=== PATIENT | female | born 1965 | race Caucasian/White ===

== ENCOUNTER → 2016-10-14 | Outpatient (CLI) | payer BC ==
--- NOTE | 2016-10-18 09:32 | MM ---
Reason for exam: screening (asymptomatic). Last mammogram was performed 1 year and 7 months ago. History: Benign excisional biopsy of the right breast. Physical Findings: A clinical breast exam by your physician is recommended on an annual basis and results should be correlated with mammographic findings. MG Screening Mammo w CAD Bilateral CC and MLO view(s) were taken. Prior study comparison: March 14, 2015, bilateral MG screening mammo w CAD. June 29, 2012, bilateral digital screening mammo w/CAD. The breast tissue is heterogeneously dense. This may lower the sensitivity of mammography. There is chronic nodularity in the right breast. No significant changes when compared with prior studies. ASSESSMENT: Benign, BI-RAD 2 RECOMMENDATION: Routine screening mammogram of both breasts in 1 year.
== END ==
LOC: RADMAMWWP 07:00
PROVIDERS: ATTEND Obstetrics & Gynecology
DX: Z12.31 Encounter for screening mammogram for malignant neoplasm of breast (principal)

== ENCOUNTER → 2018-02-28 | Outpatient (CLI) | payer BC ==
--- NOTE | 2018-03-01 11:24 | MM ---
Reason for exam: screening (asymptomatic). Last mammogram was performed 1 year and 4 months ago. History: Patient is postmenopausal. Benign excisional biopsy of the right breast. Physical Findings: A clinical breast exam by your physician is recommended on an annual basis and results should be correlated with mammographic findings. MG Screening Mammo w CAD Bilateral CC and MLO view(s) were taken. Prior study comparison: October 14, 2016, bilateral MG screening mammo w CAD. March 14, 2015, bilateral MG screening mammo w CAD. The breast tissue is heterogeneously dense. This may lower the sensitivity of mammography. No significant changes when compared with prior studies. ASSESSMENT: Negative, BI-RAD 1 RECOMMENDATION: Routine screening mammogram of both breasts in 1 year.
== END | disposition home or self-care (01) ==
LOC: RADMAMWWP 07:26
PROVIDERS: ATTEND Obstetrics & Gynecology
DX: Z12.31 Encounter for screening mammogram for malignant neoplasm of breast (principal)
CPT/HCPCS: 77067

== ENCOUNTER → 2020-02-28 | Outpatient (CLI) | payer BC | END | disposition home or self-care (01) | LOC: LABWHC1 14:24 | PROVIDERS: ATTEND Family Medicine | DX: J22 Unspecified acute lower respiratory infection (principal); Z20.828 Contact with and (suspected) exposure to other viral communicable diseases | CPT/HCPCS: U0003; C9803 ==

== ENCOUNTER → 2020-03-18 | Outpatient (CLI) | payer BC ==
--- NOTE | 2020-03-18 13:45 | MM ---
Reason for exam: screening (asymptomatic). Last mammogram was performed 2 years and 1 month ago. History: Patient is postmenopausal. Benign excisional biopsy of the right breast. Physical Findings: A clinical breast exam by your physician is recommended on an annual basis and results should be correlated with mammographic findings. MG 3D Screening Mammo W/Cad Bilateral CC and MLO view(s) were taken. Prior study comparison: February 28, 2018, bilateral MG screening mammo w CAD. October 14, 2016, bilateral MG screening mammo w CAD. The breast tissue is heterogeneously dense. This may lower the sensitivity of mammography. Asymmetric breast tissue right breast, stable. There is no discrete abnormality. ASSESSMENT: Negative, BI-RAD 1 RECOMMENDATION: Routine screening mammogram of both breasts in 1 year.
== END | disposition home or self-care (01) ==
LOC: RADMAMWWP 07:14
PROVIDERS: ATTEND Family Medicine
DX: Z12.31 Encounter for screening mammogram for malignant neoplasm of breast (principal)
CPT/HCPCS: 77063; 77067

== ENCOUNTER → 2021-07-30 | Outpatient (CLI) | payer BC ==
--- NOTE | 2021-07-31 14:28 | MM ---
Reason for exam: screening (asymptomatic). Last mammogram was performed 1 year and 4 months ago. History: Patient is postmenopausal. Benign excisional biopsy of the right breast. Physical Findings: A clinical breast exam by your physician is recommended on an annual basis and results should be correlated with mammographic findings. MG 3D Screening Mammo W/Cad Bilateral CC and MLO view(s) were taken. Prior study comparison: March 18, 2020, bilateral MG 3d screening mammo w/cad. February 28, 2018, bilateral MG screening mammo w CAD. There are scattered fibroglandular densities. Finding: There is a typically benign 3 mm equal density (isodense), circumscribed oval mass located 7 cm from the nipple in the right breast. New finding since March 18, 2020 and February 28, 2018. ASSESSMENT: Incomplete: need additional imaging evaluation, BI-RAD 0 RECOMMENDATION: Ultrasound of the right breast. [facility] will attempt to contact patient to return for ultrasound.
== END | disposition home or self-care (01) ==
LOC: RADMAMWWP 07:37
PROVIDERS: ATTEND Internal Medicine
DX: Z12.31 Encounter for screening mammogram for malignant neoplasm of breast (principal); Z78.0 Asymptomatic menopausal state
CPT/HCPCS: 77063; 77067

== ENCOUNTER → 2021-08-07 | Outpatient (CLI) | payer BC ==
--- NOTE | 2021-08-07 10:37 | USB ---
Reason for exam: additional evaluation requested from abnormal screening. History: Patient is postmenopausal. Benign excisional biopsy of the right breast. Physical Findings: A clinical breast exam by your physician is recommended on an annual basis and results should be correlated with mammographic findings. US Breast Workup Limited RT Right limited breast ultrasound including focal area of concern, retroareolar and axilla demonstrates a 0.5 x 0.4 x 0.2cm oval, cystic lesion at 6 o'clock, 2.6cm from nipple. Scanned 11-6 o'clock. These results were verbally communicated with the patient and result sheet given to the patient on 08/07/21. ASSESSMENT: Probably benign, BI-RAD 3 RECOMMENDATION: Ultrasound of the right breast in 6 months.
== END | disposition home or self-care (01) ==
LOC: RADUSWWP 10:08
PROVIDERS: ATTEND Internal Medicine
DX: R92.8 Other abnormal and inconclusive findings on diagnostic imaging of breast (principal); Z78.0 Asymptomatic menopausal state

== ENCOUNTER → 2021-09-24 | Outpatient (CLI) | payer BC ==
[2021-09-24 14:31] VITALS: BP 123/82; PULSE 68; RESP 18; TEMP 98.9
--- NOTE | 2021-09-24 14:57 | P.GSHP ---
History of Present Illness H&P Date: 09/24/21 Chief Complaint: abnormal right breast ultrasound Rosario is a 56 year old white female seen in consultation for Dr. Vargas regarding a radiographic abnormality of the right breast. The patient does not feel any new lumps masses or nodules of concern in either breast. She is not complaining of any nipple discharge or skin changes. She underwent a bilateral screening mammogram on 332. This was felt to be incomplete and an ultrasound of the right breast was recommended. No lesions of concern were identified in the left breast. Ultrasound of the right breast revealed a 0.5 x 0.4 cm oval cystic lesion at 6:00 2.6 cm from the nipple. This was felt to be probably benign BIRADS 3 and ultrasound of the right breast in 6 months was recommended. She had a right breast cyst removed 30 years ago it was benign. She is not complaining of any nipple discharge or skin changes. She has not had any recent trauma or infection in the breast. She has not had a period for 5 years. She is still having hot flashes. caffiene: 3 cups coffee/day nicotine: none chocolate: none BCP: used for about 10 years and stopped 30 years ago Family history: Negative for cancer Hormonal history: Menarche: 15 , breast fed: yes, age at first : 25 menopause: periods stopped at 50 secondary to ablation Surgical history: Appendectomy tubaligation right breast cyst removal Medical History: none Social History: nicotine: none alcohol: none drugs: none - Constitutional Constitutional: Denies chills, Denies fever - EENT Eyes: denies blurred vision, denies pain Ears: deny: decreased hearing, tinnitus Ears, nose, mouth and throat: Denies headache, Denies sore throat - Breasts Breasts: bilateral: as per HPI - Cardiovascular Cardiovascular: Denies chest pain, Denies shortness of breath - Respiratory Respiratory: Denies cough, Denies 7 - Gastrointestinal Gastrointestinal: Denies abdominal pain, Denies diarrhea, Denies nausea, Denies vomiting - Genitourinary (Female) Genitourinary: Denies dysuria, Denies hematuria - Menstruation Menstruation: Reports postmenopausal - Musculoskeletal Musculoskeletal: Denies myalgias - Integumentary Integumentary: Denies pruritus, Denies rash - Neurological Neurological: Denies numbness, Denies weakness - Psychiatric Psychiatric: Denies anxiety, Denies depression - Endocrine Endocrine: Denies fatigue, Denies weight change - Hematologic/Lymphatic Comment: none - Allergic/Immunologic Allergic/Immunologic: Reports as per HPI Past Medical History Past Medical History: CVA/TIA Additional Past Medical History / Comment(s): tia History of Any Multi-Drug Resistant Organisms: None Reported Past Surgical History: Appendectomy, Tubal Ligation Additional Past Surgical History / Comment(s): uterine ablation Past Psychological History: No Psychological Hx Reported Smoking Status: Never smoker Past Alcohol Use History: None Reported Past Drug Use History: None Reported Medications and Allergies Home Medications Medication Instructions Recorded Confirmed Type No Known Home Medications 09/24/21 09/24/21 History Allergies Allergy/AdvReac Type Severity Reaction Status Date / Time No Known Allergies Allergy Verified 09/24/21 14:28 Surgical - Exam Vital Signs Temp Pulse Resp BP Pulse Ox 98.9 F 68 18 123/82 100 09/24/21 14:29 09/24/21 14:29 09/24/21 14:29 09/24/21 14:29 09/24/21 14:29 BMI: 30.3 - General no distress - Eyes normal ocular movement - ENT no hearing loss, no congestion - Neck trachea midline - Respiratory normal respiratory effort - Cardiovascular Rhythm: regular Heart Sounds: normal: S1, S2 - Abdomen Abdomen: soft - Integumentary no rash, no abnormal pigmentation - Neurologic no disoriented, no combative - Musculoskeletal normal gait, normal posture - Psychiatric oriented to time, oriented to person, oriented to place, speech is normal, memory intact Breast Exam: BRA: 48C inspection: Bilateral grade 2/3 ptosis Palpation: Right breast: Positional exam fibrocystic changes no dominant masses or notches of concern Right axilla: No adenopathy of concern Left breast: Multiple positional exam fibrocystic changes no dominant masses or nodules of concern Left axilla: No adenopathy of concern Special attention to the 6 o'clock position of the right breast did not reveal any palpable abnormality of concern Results Mammogram and ultrasound reviewed from 08-07-21 Assessment and Plan Assessment: Impression: Fibrocystic breast changes Mammographic abnormality right breast/believed to be fibrocystic in nature Plan: Repeat right breast ultrasound in 6 months with physician exam at that time We have discussed decreasing/eliminating caffeine as a lifestyle modification which may decrease fibrocystic changes Patient will call sooner with any questions or concerns Cc: Dr. Vargas, Dr. Ramirez
== END ==
LOC: WWCWWP 14:00
PROVIDERS: ATTEND Surgery
DX: N60.11 Diffuse cystic mastopathy of right breast (principal); N60.12 Diffuse cystic mastopathy of left breast; Z86.73 Personal history of transient ischemic attack (TIA), and cerebral infarction without residual deficits

== ENCOUNTER → 2022-02-15 | Outpatient (CLI) | payer BC ==
--- NOTE | 2022-02-15 08:51 | USB ---
Reason for Exam: Follow-up at short interval from prior study. Patient History: Menarche at age 13. First Full-Term at age 24. Postmenopausal. Benign Excisional Biopsy on the right side. Risk Values: Nadira 5 year model risk: 1.3%. NCI Lifetime model risk: 8.5%. Technique: Method: Targeted. Prior Study Comparison: 02/28/2018 Bilateral Screening Mammogram, [facility]. 03/18/2020 Bilateral Screening Mammogram, [facility]. 07/30/2021 Bilateral Screening Mammogram, [facility]. Findings: The lower section of the breast of the right breast, the axilla of the right breast and the retroareolar of the right breast were scanned. Targeted scanning right breast 4:00 to 7:00. Redemonstrated at the 6:00 position, there is a small oval cyst measuring 5 x 4 x 2 mm, relatively unchanged. No other solid or cystic lesion. Likely mammographic correlate.. Overall Assessment: Probably benign, BI-RAD 3 Management: Diagnostic Mammogram of both breasts in 6 months. Total one-year follow-up right breast and annual exam of the left breast. Patient should continue monthly self breast exams. Electronically signed and approved by: Bigg Heredia M.D. Radiologist
== END | disposition home or self-care (01) ==
LOC: RADUSWWP 08:18
PROVIDERS: ATTEND Surgery
DX: R92.8 Other abnormal and inconclusive findings on diagnostic imaging of breast (principal); Z78.0 Asymptomatic menopausal state

== ENCOUNTER → 2022-02-19 | Outpatient (CLI) | payer BC ==
[2022-02-19 10:57] VITALS: BP 125/73; PULSE 73; RESP 12; TEMP 98.6
--- NOTE | 2022-02-19 11:46 | P.PN ---
Subjective Progress Note Date: 02/19/22 Principal diagnosis: fibrocystic breast Rosario is a 56 year old white female seen in consultation for Dr. Vargas on 09-24-21 regarding a radiographic abnormality of the right breast. The patient did not feel any new lumps masses or nodules of concern in either breast. She w as not complaining of any nipple discharge or skin changes. She underwent a bilateral screening mammogram on 3321. This was felt to be incomplete and an ultrasound of the right breast was recommended. No lesions of concern were identified in the left breast. Ultrasound of the right breast revealed a 0.5 x 0.4 cm oval cystic lesion at 6:00 2.6 cm from the nipple. This was felt to be probably benign BIRADS 3 and ultrasound of the right breast in 6 months was recommended. She had a right breast cyst removed 30 years ago it was benign. She is not complaining of any nipple discharge or skin changes. She has not had any recent trauma or infection in the breast. She has not had a period for 5 years. She is still having hot flashes. She had a repeat ultrasound done on 02-15-22 showing an unchanged small oval cyst at the 6 O Clock position of the right breast. Diagnositic mammogram of both breast in 6 months was recommended. caffiene: 3 cups coffee/day nicotine: none chocolate: none BCP: used for about 10 years and stopped 30 years ago Family history: Negative for cancer Hormonal history: Menarche: 15 , breast fed: yes, age at first : 25 menopause: periods stopped at 50 secondary to ablation Surgical history: Appendectomy tubaligation right breast cyst removal Medical History: none Social History: nicotine: none alcohol: none drugs: none - Constitutional Constitutional: Denies chills, Denies fever - EENT Eyes: denies blurred vision, denies pain Ears: deny: decreased hearing, tinnitus Ears, nose, mouth and throat: Denies headache, Denies sore throat - Breasts Breasts: bilateral: as per HPI - Cardiovascular Cardiovascular: Denies chest pain, Denies shortness of breath - Respiratory Respiratory: Denies cough - Gastrointestinal Gastrointestinal: Denies abdominal pain, Denies diarrhea, Denies nausea, Denies vomiting - Genitourinary (Female) Genitourinary: Denies dysuria, Denies hematuria - Menstruation Menstruation: Reports postmenopausal - Musculoskeletal Musculoskeletal: Denies myalgias - Integumentary Integumentary: Denies pruritus, Denies rash - Neurological Neurological: Denies numbness, Denies weakness - Psychiatric Psychiatric: Denies anxiety, Denies depression - Endocrine Endocrine: Denies fatigue, Denies weight change - Hematologic/Lymphatic Comment: none - Allergic/Immunologic Allergic/Immunologic: Reports as per HPI Objective - Vital Signs Vital signs: Vital Signs Temp 98.6 F 02/19/22 10:53 Pulse 73 02/19/22 10:53 Resp 12 02/19/22 10:53 BP 125/73 02/19/22 10:53 Pulse Ox 99 02/19/22 10:53 FiO2 Intake & Output 02/18/22 02/19/22 02/19/22 18:59 06:59 18:59 Weight 81.647 kg - Constitutional General appearance: Present: cooperative - EENT Eyes: Present: EOMI ENT: Present: hearing grossly normal - Neck Neck: Present: normal ROM - Respiratory Respiratory: bilateral: CTA - Cardiovascular Rhythm: regular Heart sounds: normal: S1, S2 - Integumentary Integumentary: Present: normal turgor - Musculoskeletal Musculoskeletal: Present: gait normal - Psychiatric Psychiatric: Present: A&O x's 3, appropriate affect, intact judgment & insight - Additional findings Additional findings: Breast Exam: BRA; 38C Inspection: Bilateral grade 3 ptosis Palpation: Bypass: Multiple position with exam fibrocystic changes no dominant masses or nodules of concern Right axilla: No adenopathy of concern Left breast: Multiple position exam the dominant masses or nodules of concern Left axilla: No adenopathy of concern Assessment and Plan Assessment: Impression: Fibrocystic breast changes Cystic lesion noted on ultrasound stable Plan: Bilateral mammogram in 6 months with physician exam at that time Patient is going to follow with Dr. Vargas and obtain the order for her mammogram from him Follow-up here as needed CC: Sam Mena
== END ==
LOC: WWCWWP 10:36
PROVIDERS: ATTEND Surgery
DX: N60.19 Diffuse cystic mastopathy of unspecified breast (principal)

== ENCOUNTER → 2022-11-02 | Outpatient (CLI) | payer BC ==
--- NOTE | 2022-11-02 15:06 | XR ---
EXAMINATION TYPE: XR chest 2V DATE OF EXAM: 11/02/2022 COMPARISON: 01/03/16 HISTORY: Shortness of breath TECHNIQUE: Frontal and lateral views of the chest are obtained. FINDINGS: Scattered senescent parenchymal changes noted. Hyperinflation compatible with COPD. No evidence for infiltrate. No evidence for atelectasis. Heart size is stable. Mediastinal structures are stable and grossly unremarkable. No evidence for hilar prominence. Degenerative changes dorsal spine. IMPRESSION: 1. No evidence for acute pulmonary disease.
== END | disposition home or self-care (01) ==
LOC: RADXRMAIN 11:11
PROVIDERS: ATTEND Internal Medicine
DX: R06.02 Shortness of breath (principal); R05.9 Cough, unspecified
CPT/HCPCS: 71046

== ENCOUNTER → 2023-08-05 | Outpatient (CLI) | payer BC ==
--- NOTE | 2023-08-08 20:09 | MM ---
Reason for Exam: Screening (asymptomatic). Last screening mammogram was performed 12 month(s) ago. Patient History: Menarche at age 13. First Full-Term at age 24. Postmenopausal. Patient has history of breast feeding. Benign Excisional Biopsy on the right side. Risk Values: Nadira 5 year model risk: 1.4%. NCI Lifetime model risk: 8.3%. Prior Study Comparison: 10/14/2016 Bilateral Screening Mammogram, [facility]. 02/28/2018 Bilateral Screening Mammogram, [facility]. 03/18/2020 Bilateral Screening Mammogram, [facility]. 07/30/2021 Bilateral Screening Mammogram, [facility]. 08/03/2022 Bilateral MG 3D screening mammo w/cad, [facility]. Tissue Density: There are scattered areas of fibroglandular density. Findings: Analyzed By CAD. Chronic nodularity on the right. There is no suspicious group of microcalcifications or new suspicious mass in either breast. Overall Assessment: Benign, BI-RAD 2 Management: Screening Mammogram of both breasts in 1 year. . Patient should continue monthly self-breast exams. A clinical breast exam by your physician is recommended on an annual basis. This exam should not preclude additional follow-up of suspicious palpable abnormalities. Note on Nadira scores and lifetime risk: 1. A Nadira score greater than 3% is considered moderate risk. If this is the case, consider specialist referral to assess eligibility for a risk reducing agent. 2. If overall lifetime risk for the development of breast cancer is 20% or higher, the patient may qualify for future screening with alternating mammogram and breast MRI. Electronically signed and approved by: Bigg Heredia M.D. Radiologist
== END | disposition home or self-care (01) ==
LOC: RADMAMWWP 07:52
PROVIDERS: ATTEND Obstetrics & Gynecology
DX: Z12.31 Encounter for screening mammogram for malignant neoplasm of breast (principal); Z78.0 Asymptomatic menopausal state
CPT/HCPCS: 77063; 77067

== ENCOUNTER 2023-12-13 08:01 | Day surgery (SDC) | payer BC ==
[2023-12-13] MEDS: ALPRAZolam 0.5 MG TAB PO STA (08:30)
[2023-12-13 08:36] VITALS: RESP 16; TEMP 98
[2023-12-13] MEDS: TRIAMCINOLONE ACETONIDE 40 MG/ML 1 ML VIAL INTRADERMA STA (09:33)
[2023-12-13 09:58] VITALS: BP 106/67; PULSE 60
--- NOTE | 2023-12-13 11:11 | US ---
EXAMINATION TYPE: US guided asp/inj major joint DATE OF EXAM: 12/13/2023 Comparison: Patient's outside MRI is not available for review. Clinical History: 58-year-old female with M25.562 PAIN IN LEFT KNEE, referred for ultrasound-guided B beatriz cyst aspiration and injection. Procedure: 1. Ultrasound of the left popliteal fossa 2. Aspiration of the Geornimo's cyst with ultrasound guidance. 3. Injection of Kenalog with ultrasound guidance. TECHNIQUE: The procedure, risks, and alternatives, were discussed with the patient, who requested flora t we proceed. The consent form was signed, and teach-back occurred. The site/side of the procedure wa s marked with a line with participation by the patient. The accompanying paperwork was verified for c onsistency. A directed history and physical exam was performed prior to the procedure. Medication rec onciliation was performed by ancillary personnel. A critical pause was performed with assisting ibis watt just prior to the procedure and the patient's identity was confirmed using 2 identifiers. Imagin g guidance was utilized to select the precise skin entry point just prior to the procedure. Initial ultrasound shows a moderate-sized Geronimo's cyst measuring 3.5 cm wide but over 7 cm in length extending outside the field of view on a given ultrasound image. The left popliteal fossa was prepped and draped in the usual sterile fashion and local 1% lidocaine a nesthesia was instilled. The procedure was performed with the patient in prone position. Under ultrasound guidance and trocar technique, a 5 [place] One-step catheter system was introduced in to left-sided Geronimo's cyst. Ultrasound confirmed the position of the catheter. Under ultrasound surve illance, aspiration yielded 12 mL of normal clear yellow synovial fluid. The Geronimo's cyst collapsed c ompletely though the mildly thickened cyst morton continued to outline the collapsed space. Subsequently, 1 mL of Kenalog-40 was injected into the collapsed space. As the needle was withdrawn, total of 2 mL 1% lidocaine was injected into the collapsed space and infiltrated along the catheter t ract. The patient tolerated the procedure well. There were no immediate complications. After the procedure, the patient's condition was unchanged. Es timated blood loss was minimal. The patient was instructed on routine postprocedure precautions. IMPRESSION: Ultrasound guided left Geronimo's cyst aspiration and steroid injection. The cyst collapsed with 12 mL n ormal synovial fluid aspirated and discarded. No immediate complication.
== END 2023-12-13 09:55 | disposition home or self-care (01) ==
LOC: RADPROMAIN 08:01
PROVIDERS: ATTEND Orthopaedic Surgery
DX: M71.22 Synovial cyst of popliteal space [Baker], left knee (principal)
CPT/HCPCS: 20611; J3301

== ENCOUNTER → 2024-08-08 | Outpatient (CLI) | payer BC ==
--- NOTE | 2024-08-08 09:45 | MM ---
Reason for Exam: Screening (asymptomatic). Last screening mammogram was performed 12 month(s) ago. Patient History: Menarche at age 13. First Full-Term at age 24. Postmenopausal. Patient has history of breast feeding. Benign Excisional Biopsy on the right side. Risk Values: Nadira 5 year model risk: 1.4%. NCI Lifetime model risk: 8.1%. Prior Study Comparison: 07/30/2021 Bilateral Screening Mammogram, [facility]. 08/03/2022 Bilateral MG 3D screening mammo w/cad, [facility]. 08/05/2023 Bilateral MG 3D screening mammo w/cad, [facility]. Tissue Density: The breasts are heterogeneously dense, which may obscure small masses. Findings: Analyzed By CAD. There is no suspicious group of microcalcifications or new suspicious mass in either breast. Overall Assessment: Negative, BI-RAD 1 Management: Screening Mammogram of both breasts in 1 year. . Patient should continue monthly self-breast exams. A clinical breast exam by your physician is recommended on an annual basis. This exam should not preclude additional follow-up of suspicious palpable abnormalities. Note on Nadira scores and lifetime risk: 1. A Nadira score greater than 3% is considered moderate risk. If this is the case, consider specialist referral to assess eligibility for a risk reducing agent. 2. If overall lifetime risk for the development of breast cancer is 20% or higher, the patient may qualify for future screening with alternating mammogram and breast MRI. [facility], , 08/08/2024 9:42 AM. Electronically signed and approved by: Rudy Ordonez M.D. Radiologis
== END | disposition home or self-care (01) ==
LOC: RADMAMWWP 06:53
PROVIDERS: ATTEND Internal Medicine
DX: Z12.31 Encounter for screening mammogram for malignant neoplasm of breast (principal); R92.333 Mammographic heterogeneous density, bilateral breasts; Z78.0 Asymptomatic menopausal state
CPT/HCPCS: 77063; 77067

== ENCOUNTER → 2024-12-21 | Outpatient (CLI) | payer BC ==
--- NOTE | 2024-12-21 09:30 | XR ---
EXAMINATION TYPE: XR KUB DATE OF EXAM: 12/21/2024 9:05 AM COMPARISON: 01/03/2016 CLINICAL INDICATION: Female, 59 years old with history of N39.0 UTI, TECHNIQUE: XR KUB view(s) obtained. FINDINGS: There is a normal bowel gas pattern. Psoas margins are normal. No organomegaly is present. IMPRESSION: 1. Unremarkable Abdomen [facility], , 12/21/2024 9:27 AM
[2024-12-21 10:46] LABS: Bacteria,Urine Few /hpf; Bilirubin,Urine Negative (Negative); Blood,Urine Small (Negative); Color,Urine Yellow; Glucose,Urine (UA) Negative (Negative); Hyaline Casts,Urine 4 /lpf (0-2); Ketones,Urine Negative (Negative); Leukocyte Esterase,Urine Large (Negative); Mucus,Urine Few /hpf; Nitrite,Urine Negative (Negative); PH, Urine 5.5 (5.0-8.0); Protein,Urine Trace (Negative); RBC,Urine 7 /hpf (0-5); Specific Gravity,Urine 1.021 (1.001-1.035); Squamous Epithelial Cell,Urine 4 /hpf (0-4); Urobilinogen,Urine <2.0 mg/dL (<2.0); WBC,Urine >182 /hpf (0-5)
== END | disposition home or self-care (01) ==
LOC: RADXRMAIN 08:43
PROVIDERS: ATTEND Internal Medicine
DX: N39.0 Urinary tract infection, site not specified (principal)
CPT/HCPCS: 74018; 81001; 87086